=== PATIENT | male | born 1950 | race Hispanic/Latino ===

== ENCOUNTER 2020-10-28 20:34 | Inpatient (IN) | payer MEDICARE, OTHER ==
[~2020-10-28] VITALS: Ht 165.1 cm; Wt 95.3 kg
[2020-10-28] MEDS ORDERED: LACTATED RINGERS 1000ML 1,000 ML IV ONE (21:30)
[2020-10-28 22:00] LABS: EOSINOPHILS % (AUTO) 5.1 % (0.0-8.0); HEMATOCRIT 40.4 % (42-54); LYMPHOCYTES % (AUTO) 12.1 % (21.0-51.0); MEAN CORPUSCULAR HEMOGLOBIN 30.9 pg (27.0-33.0); MEAN CORPUSCULAR HGB CONC 33.9 g/dL (32.0-36.0); MONOCYTES % (AUTO) 6.9 % (3.0-13.0); NEUTROPHILS % (AUTO) 74.3 % (40.0-77.0); PLATELET COUNT (AUTO) 166 K/uL (130-400); RED BLOOD CELL COUNT(AUTO) 4.44 MIL/uL (4.50-6.20); RED CELL DISTRIBUTION WIDTH 13.2 % (11.0-15.5); WHITE BLOOD COUNT (AUTO) 7.1 K/uL (4.8-10.8)
[2020-10-28 22:07] VITALS: BP 165/86
[2020-10-28 22:10] LABS: CREATININE 1.1 mg/dL (0.5-1.5); POTASSIUM 4.6 mmol/L (3.5-5.1)
[2020-10-28 22:16] LABS: ALBUMIN 3.9 g/dL (3.5-5.0); BILIRUBIN,TOTAL 0.5 mg/dL (0.2-1.0); CRP QUANTITATIVE 10.4 mg/L (0.00-9.0); TOTAL PROTEIN, SERUM 7.3 g/dL (6.0-8.3)
[2020-10-28 22:36] LABS: APPEARANCE,URINE Clear (CLEAR); BILIRUBIN,URINE Negative (NEGATIVE); COLOR,URINE Yellow (YELLOW); GLUCOSE, URINE (UA) Negative (NEGATIVE); KETONES,URINE Negative (NEGATIVE); LEUKOCYTE ESTERASE ,URINE Negative (NEGATIVE); NITRATE,URINE Negative (NEGATIVE); OCCULT BLOOD,URINE Negative (NEGATIVE); PH,URINE 5.5 (5.0-8.0); PROTEIN,URINE Negative (NEGATIVE)
[2020-10-29] VITALS (8 sets, daily range): BP systolic 118–158; BP diastolic 59–83
[2020-10-29] MEDS ORDERED: ONDANSETRON 4MG INJ IVP PRN (04:30)
[2020-10-29] MEDS ORDERED: ACETAMINOPHEN 325 MG TAB PO PRN (04:30)
[2020-10-29] MEDS ORDERED: DEXTROSE 50%-WATER 50 ML DISP.SYRIN IV PRN (05:30)
[2020-10-29] MEDS ORDERED: GLUCAGON 1MG KIT 1 MG ML IM PRN (05:30)
[2020-10-29] MEDS: DEXTROSE 5 % AND 0.9 % NACL 1,000 ML IV SCH (05:44)
[2020-10-29] MEDS: INSULIN HUMULIN R 100 UNIT/ML 3ML SQ SCH ×3 (06:00→16:04)
[2020-10-29 08:12] LABS: BASOPHILS % (AUTO) 0.8 % (0.0-5.0); EOSINOPHILS % (AUTO) 5.1 % (0.0-8.0); HEMATOCRIT 37.7 % (42-54); LYMPHOCYTES % (AUTO) 13.5 % (21.0-51.0); MEAN CORPUSCULAR HEMOGLOBIN 30.7 pg (27.0-33.0); MEAN CORPUSCULAR HGB CONC 33.4 g/dL (32.0-36.0); MEAN CORPUSCULAR VOLUME 91.7 fL (79-99); MONOCYTES % (AUTO) 7.9 % (3.0-13.0); NEUTROPHILS % (AUTO) 72.2 % (40.0-77.0); PLATELET COUNT (AUTO) 148 K/uL (130-400); RED BLOOD CELL COUNT(AUTO) 4.11 MIL/uL (4.50-6.20); RED CELL DISTRIBUTION WIDTH 13.2 % (11.0-15.5); WHITE BLOOD COUNT (AUTO) 6.3 K/uL (4.8-10.8)
[2020-10-29 08:29] LABS: MAGNESIUM 1.8 mg/dL (1.80-2.40); POTASSIUM 3.8 mmol/L (3.5-5.1)
[2020-10-29] MEDS: ENOXAPARIN SODIUM 30 MG/0.3 ML SQ SCH (09:20)
[2020-10-29] MEDS ORDERED: OXYB10TA30 PO (12:51)
[2020-10-29] MEDS ORDERED: DOCU-116 PO (12:51)
[2020-10-29] MEDS ORDERED: ASPI-1026 PO (12:51)
[2020-10-29] MEDS ORDERED: PANT40TA54 PO (12:51)
[2020-10-29] MEDS ORDERED: MIRT15TA2 PO (12:51)
[2020-10-29] MEDS ORDERED: AMLO-257 PO (12:51)
[2020-10-29] MEDS ORDERED: LOSA50TA64 PO (12:51)
[2020-10-29] MEDS ORDERED: PRAV20TA4 PO (12:51)
[2020-10-29] MEDS ORDERED: CARB1TAB42 PO (12:51)
[2020-10-29] MEDS ORDERED: DOXA1TAB2 PO (12:51)
[2020-10-29] MEDS ORDERED: VENL-63 PO (12:51)
[2020-10-29] MEDS ORDERED: SITA25TA5 PO (12:51)
[2020-10-29] MEDS ORDERED: FOLI0.8T3 PO (12:51)
[2020-10-30] VITALS (19 sets, daily range): BP systolic 120–174; BP diastolic 46–98
[2020-10-30] MEDS: DEXTROSE 5 % AND 0.9 % NACL 1,000 ML IV SCH ×3 (01:00→21:33)
[2020-10-30 05:07] LABS: MEAN CORPUSCULAR HEMOGLOBIN 31.1 pg (27.0-33.0); MEAN CORPUSCULAR HGB CONC 33.8 g/dL (32.0-36.0); MEAN CORPUSCULAR VOLUME 91.8 fL (79-99); RED BLOOD CELL COUNT(AUTO) 4.25 MIL/uL (4.50-6.20); RED CELL DISTRIBUTION WIDTH 13.2 % (11.0-15.5); WHITE BLOOD COUNT (AUTO) 5.7 K/uL (4.8-10.8)
[2020-10-30 05:16] LABS: MAGNESIUM 1.7 mg/dL (1.80-2.40); POTASSIUM 3.8 mmol/L (3.5-5.1)
[2020-10-30 05:29] LABS: INR 1.05 (0.85-1.15); PROTHROMBIN TIME 11.4 SEC (9.6-11.6)
[2020-10-30] MEDS: INSULIN HUMULIN R 100 UNIT/ML 3ML SQ SCH ×3 (06:00→12:00)
[2020-10-30] MEDS: ENOXAPARIN SODIUM 30 MG/0.3 ML SQ SCH (09:00)
[2020-10-30] MEDS ORDERED: CEFAZOLIN SODIUM 1 GM VIAL ONE (12:11)
[2020-10-30] MEDS ORDERED: PROPOFOL 10 MG/ML 20ML VIAL IV ONE (12:22)
[2020-10-30] MEDS ORDERED: LIDOCAINE HCL 1% 20 ML VIAL ONE (12:23)
[2020-10-30] MEDS ORDERED: MAGNESIUM 2GM PREMIX 50ML 50 ML IV SCH (14:00)
[2020-10-30] MEDS ORDERED: MAGNESIUM 2GM PREMIX 50ML 50 ML IV ONE (21:38)
[2020-10-31] VITALS (27 sets, daily range): BP systolic 113–198; BP diastolic 60–95
[2020-10-31] MEDS: INSULIN HUMULIN R 100 UNIT/ML 3ML SQ SCH ×4 (06:00→18:00)
[2020-10-31] MEDS: ENOXAPARIN SODIUM 30 MG/0.3 ML SQ SCH (09:00)
[2020-10-31] MEDS ORDERED: 0.9%NACL 1000ML 1,000 ML IV ONE (09:26)
[2020-10-31] MEDS ORDERED: LIDOCAINE PF 100MG/5ML (2%) SYRINGE 5ML ONE ×2 (10:18→10:20)
[2020-10-31] MEDS ORDERED: SUCCINYLCHOLINE CHLORIDE 20 MG/ML 10 ML VIAL ONE ×2 (10:18→10:20)
[2020-10-31] MEDS ORDERED: DEXAMETHASONE SOD PHOSPHATE 10MG/ML 1ML VIAL ONE (10:18)
[2020-10-31] MEDS ORDERED: ONDANSETRON 4MG INJ ONE (10:19)
[2020-10-31] MEDS ORDERED: MIDAZOLAM HCL 1 MG/ML 2ML VIAL ONE (10:19)
[2020-10-31] MEDS ORDERED: PROPOFOL 10 MG/ML 20ML VIAL IV ONE (10:19)
[2020-10-31] MEDS ORDERED: FENTANYL CITRATE PF 50 MCG/1 ML 2ML VIAL ONE (10:20)
[2020-10-31] MEDS ORDERED: ROCURONIUM 10MG/1ML SYR 10 MG/ML ML ONE (10:20)
[2020-10-31] MEDS ORDERED: NEOSTIGMINE 5MG/5ML SYR IV ONE (10:20)
[2020-10-31] MEDS ORDERED: PHENYLEPHRINE HCL 10 MG/ML 1ML VIAL IV ONE (10:35)
[2020-10-31] MEDS ORDERED: CEFAZOLIN SODIUM 1 GM VIAL ONE ×2 (10:36→11:06)
[2020-10-31] MEDS ORDERED: BUPIVACAINE/PF 0.25% 30ML VIAL IJ ONE (11:30)
[2020-10-31] MEDS ORDERED: LIDOCAINE HCL 1% 20 ML VIAL ONE (11:30)
[2020-10-31] MEDS ORDERED: BUPIVACAINE/EPI/PF 0.25% 30ML VIAL IJ ONE (11:31)
[2020-10-31] MEDS ORDERED: HYDRALAZINE 20MG/ML VIAL ONE (11:59)
[2020-10-31] MEDS ORDERED: MEPERIDINE-PF 25 MG/ML SYG ONE (12:15)
[2020-10-31] MEDS: TRAMADOL HCL 50 MG TABLET PO SCH ×2 (16:00→22:00)
[2020-10-31] MEDS ORDERED: TRAMADOL HCL 50 MG TABLET ONE (16:08)
[2020-10-31] MEDS: HYDROMORPHONE 0.5 MG SYG (0.5MG/0.5ML) IVP PRN ×2 (16:56→22:01)
[2020-11-01] VITALS: BP 149/81
[2020-11-01] MEDS: DEXTROSE 5 % AND 0.9 % NACL 1,000 ML IV SCH (03:52)
[2020-11-01 04:00] VITALS: BP 155/78
[2020-11-01] MEDS: INSULIN HUMULIN R 100 UNIT/ML 3ML SQ SCH ×4 (06:00→17:46)
[2020-11-01] MEDS: TRAMADOL HCL 50 MG TABLET PO SCH ×3 (06:00→22:56)
[2020-11-01 08:00] VITALS: BP 128/78
[2020-11-01] MEDS: HYDROMORPHONE 0.5 MG SYG (0.5MG/0.5ML) IVP PRN (10:43)
[2020-11-01] MEDS: ENOXAPARIN SODIUM 30 MG/0.3 ML SQ SCH (10:44)
[2020-11-01 12:00] VITALS: BP 150/76
[2020-11-01 16:00] VITALS: BP 128/65
[2020-11-01 20:00] VITALS: BP 138/74
[2020-11-02] VITALS: BP 142/75
[2020-11-02] MEDS: INSULIN HUMULIN R 100 UNIT/ML 3ML SQ SCH ×4 (00:50→18:00)
[2020-11-02 04:00] VITALS: BP 123/60
[2020-11-02] MEDS: TRAMADOL HCL 50 MG TABLET PO SCH ×3 (07:43→21:35)
[2020-11-02 08:00] VITALS: BP 117/52
[2020-11-02] MEDS: DEXTROSE 5 % AND 0.9 % NACL 1,000 ML IV SCH (08:30)
[2020-11-02] MEDS: ENOXAPARIN SODIUM 30 MG/0.3 ML SQ SCH (08:35)
[2020-11-02 12:00] VITALS: BP 129/68
[2020-11-02] MEDS: HYDROMORPHONE 0.5 MG SYG (0.5MG/0.5ML) IVP PRN (12:08)
[2020-11-02] MEDS ORDERED: POLYETHYLENE GLYCOL 3350 17 GM POWD.PACK PO ONE (15:30)
[2020-11-02 16:00] VITALS: BP 124/81
[2020-11-02 20:00] VITALS: BP 128/56
[2020-11-03] VITALS (7 sets, daily range): BP systolic 118–147; BP diastolic 62–74
[2020-11-03] MEDS: INSULIN HUMULIN R 100 UNIT/ML 3ML SQ SCH ×4 (01:14→16:36)
[2020-11-03] MEDS: TRAMADOL HCL 50 MG TABLET PO SCH ×3 (06:47→21:41)
[2020-11-03] MEDS: ENOXAPARIN SODIUM 30 MG/0.3 ML SQ SCH (09:50)
[2020-11-03] MEDS: POLYETHYLENE GLYCOL 3350 17 GM POWD.PACK PO SCH (09:51)
[2020-11-04 03:51] VITALS: BP 140/76
[2020-11-04] MEDS: TRAMADOL HCL 50 MG TABLET PO SCH ×3 (06:24→22:35)
[2020-11-04] MEDS: INSULIN HUMULIN R 100 UNIT/ML 3ML SQ SCH ×4 (06:25→18:00)
[2020-11-04 08:00] VITALS: BP 133/64
[2020-11-04] MEDS: POLYETHYLENE GLYCOL 3350 17 GM POWD.PACK PO SCH (09:34)
[2020-11-04] MEDS: ENOXAPARIN SODIUM 30 MG/0.3 ML SQ SCH (09:35)
[2020-11-04] MEDS ORDERED: LACTULOSE 20 GM/30 ML UDCUP ONE (10:19)
[2020-11-04 12:00] VITALS: BP 130/70
[2020-11-04] MEDS ORDERED: DOCUSATE SODIUM 100 MG CAP PO PRN (13:00)
[2020-11-04 16:00] VITALS: BP 130/61
[2020-11-04] MEDS: LACTULOSE 20 GM/30 ML UDCUP PO SCH ×3 (16:00→22:35)
[2020-11-04 20:00] VITALS: BP 138/72
[2020-11-04] MEDS ORDERED: AMAN100C12 PO (20:25)
[2020-11-04] MEDS ORDERED: CARB-39 PO (20:25)
[2020-11-04] MEDS: DEXTROSE 5 % AND 0.9 % NACL 1,000 ML IV SCH (20:30)
[2020-11-04] MEDS: MIRTAZAPINE 15 MG PO SCH (22:30)
[2020-11-05] VITALS: BP 139/66
[2020-11-05] MEDS: INSULIN HUMULIN R 100 UNIT/ML 3ML SQ SCH ×4 (02:26→18:27)
[2020-11-05 04:00] VITALS: BP 123/69
[2020-11-05] MEDS: LACTULOSE 20 GM/30 ML UDCUP PO SCH ×2 (05:10→10:39)
[2020-11-05] MEDS: TRAMADOL HCL 50 MG TABLET PO SCH ×2 (05:10→13:18)
[2020-11-05 08:00] VITALS: BP 128/72
[2020-11-05] MEDS: Pravastatin Sodium 20 MG PO SCH (09:00)
[2020-11-05] MEDS ORDERED: CARBIDOPA/LEVODOPA ER 50-200 1 EACH TABLET.ER PO SCH (09:00)
[2020-11-05 09:29] LABS: HEMATOCRIT 41.1 % (42-54); MEAN CORPUSCULAR HEMOGLOBIN 30.6 pg (27.0-33.0); MEAN CORPUSCULAR HGB CONC 31.9 g/dL (32.0-36.0); RED BLOOD CELL COUNT(AUTO) 4.28 MIL/uL (4.50-6.20); WHITE BLOOD COUNT (AUTO) 8.6 K/uL (4.8-10.8)
[2020-11-05 09:44] LABS: BILIRUBIN,TOTAL 0.4 mg/dL (0.2-1.0); CREATININE 1.2 mg/dL (0.5-1.5); MAGNESIUM 2.3 mg/dL (1.80-2.40); POTASSIUM 4.1 mmol/L (3.5-5.1); TOTAL PROTEIN, SERUM 6.8 g/dL (6.0-8.3)
[2020-11-05] MEDS: ASPIRIN 325MG TAB PO SCH (10:29)
[2020-11-05] MEDS: PANTOPRAZOLE 40 MG TAB DR PO SCH (10:29)
[2020-11-05] MEDS: VENLAFAXINE HCL XR 37.5 MG CAP PO SCH (10:29)
[2020-11-05] MEDS: LOSARTAN 50 MG TABLET PO SCH (10:30)
[2020-11-05] MEDS: DOXAZOSIN MESYLATE 2 MG TABLET PO SCH (10:30)
[2020-11-05] MEDS: ACETAMINOPHEN WITH CODEINE 1 TAB TAB PO PRN ×2 (10:38→21:56)
[2020-11-05] MEDS: AMLODIPINE 5 MG TAB PO SCH (10:38)
[2020-11-05] MEDS: FOLIC ACID 1 MG TABLET PO SCH (10:38)
[2020-11-05] MEDS: POLYETHYLENE GLYCOL 3350 17 GM POWD.PACK PO SCH (10:39)
[2020-11-05] MEDS: ENOXAPARIN SODIUM 30 MG/0.3 ML SQ SCH (10:40)
[2020-11-05] MEDS: OXYBUTYNIN CHLORIDE 5 MG TABLET PO SCH (10:40)
[2020-11-05 12:00] VITALS: BP 100/63
[2020-11-05] MEDS: CARBIDOPA-LEVODOPA 25-100 TAB PEG SCH ×2 (15:14→21:49)
[2020-11-05] MEDS: DEXTROSE 5 % AND 0.9 % NACL 1,000 ML IV SCH (16:30)
[2020-11-05 17:05] VITALS: BP 106/55
[2020-11-05] MEDS: LACTULOSE 20 GM/30 ML UDCUP PO PRN (18:28)
[2020-11-05 20:21] VITALS: BP 110/62
[2020-11-05] MEDS: MIRTAZAPINE 15 MG PO SCH (21:09)
[2020-11-06] MEDS: LACTULOSE 20 GM/30 ML UDCUP PO PRN (00:15)
[2020-11-06 00:24] VITALS: BP 93/59
[2020-11-06 03:54] VITALS: BP 100/61
[2020-11-06] MEDS: INSULIN HUMULIN R 100 UNIT/ML 3ML SQ SCH ×4 (06:00→18:00)
[2020-11-06] MEDS: DEXTROSE 5 % AND 0.9 % NACL 1,000 ML IV SCH ×2 (06:09→12:30)
[2020-11-06] MEDS: CARBIDOPA-LEVODOPA 25-100 TAB PEG SCH ×4 (06:10→23:33)
[2020-11-06 08:00] VITALS: BP 125/69
[2020-11-06] MEDS: PANTOPRAZOLE 40 MG TAB DR PO SCH (08:11)
[2020-11-06] MEDS: ASPIRIN 325MG TAB PO SCH (08:12)
[2020-11-06] MEDS: VENLAFAXINE HCL XR 37.5 MG CAP PO SCH (08:12)
[2020-11-06] MEDS: OXYBUTYNIN CHLORIDE 5 MG TABLET PO SCH (08:12)
[2020-11-06] MEDS: FOLIC ACID 1 MG TABLET PO SCH (08:12)
[2020-11-06] MEDS: DOXAZOSIN MESYLATE 2 MG TABLET PO SCH (08:12)
[2020-11-06] MEDS: POLYETHYLENE GLYCOL 3350 17 GM POWD.PACK PO SCH (08:12)
[2020-11-06] MEDS: ENOXAPARIN SODIUM 30 MG/0.3 ML SQ SCH (08:13)
[2020-11-06] MEDS: LOSARTAN 50 MG TABLET PO SCH (08:15)
[2020-11-06] MEDS: AMLODIPINE 5 MG TAB PO SCH (08:15)
[2020-11-06] MEDS: Pravastatin Sodium 20 MG PO SCH (08:15)
[2020-11-06 12:00] VITALS: BP 94/50
[2020-11-06 16:00] VITALS: BP 117/62
[2020-11-06] MEDS: MIRTAZAPINE 15 MG PO SCH (19:41)
[2020-11-06 19:57] VITALS: BP 121/61
[2020-11-07] VITALS: BP 126/68
[2020-11-07 04:00] VITALS: BP 101/53
[2020-11-07] MEDS: CARBIDOPA-LEVODOPA 25-100 TAB PEG SCH ×4 (05:36→22:52)
[2020-11-07] MEDS: INSULIN HUMULIN R 100 UNIT/ML 3ML SQ SCH ×4 (05:45→17:40)
[2020-11-07 07:51] VITALS: BP 126/70
[2020-11-07] MEDS: DEXTROSE 5 % AND 0.9 % NACL 1,000 ML IV SCH (08:30)
[2020-11-07] MEDS: ENOXAPARIN SODIUM 30 MG/0.3 ML SQ SCH (09:00)
[2020-11-07] MEDS: ASPIRIN 325MG TAB PO SCH (09:01)
[2020-11-07] MEDS: VENLAFAXINE HCL XR 37.5 MG CAP PO SCH (09:01)
[2020-11-07] MEDS: ACETAMINOPHEN WITH CODEINE 1 TAB TAB PO PRN (09:01)
[2020-11-07] MEDS: DOXAZOSIN MESYLATE 2 MG TABLET PO SCH (09:01)
[2020-11-07] MEDS: AMLODIPINE 5 MG TAB PO SCH (09:02)
[2020-11-07] MEDS: PANTOPRAZOLE 40 MG TAB DR PO SCH (09:02)
[2020-11-07] MEDS: FOLIC ACID 1 MG TABLET PO SCH (09:02)
[2020-11-07] MEDS: POLYETHYLENE GLYCOL 3350 17 GM POWD.PACK PO SCH (09:03)
[2020-11-07] MEDS: OXYBUTYNIN CHLORIDE 5 MG TABLET PO SCH (09:03)
[2020-11-07] MEDS: LOSARTAN 50 MG TABLET PO SCH (09:03)
[2020-11-07] MEDS: Pravastatin Sodium 20 MG PO SCH (09:13)
[2020-11-07 12:00] VITALS: BP 117/54
[2020-11-07] MEDS: ROPINIROLE HCL 0.25 MG TABLET GT SCH ×2 (12:55→19:49)
[2020-11-07 16:00] VITALS: BP 112/63
[2020-11-07] MEDS: MIRTAZAPINE 15 MG PO SCH (19:52)
[2020-11-07 20:00] VITALS: BP 112/62
[2020-11-07] MEDS ORDERED: ROPINIROLE HCL 0.25 MG TABLET GT SCH (21:00)
[2020-11-08] VITALS (7 sets, daily range): BP systolic 101–146; BP diastolic 48–78
[2020-11-08] MEDS: DEXTROSE 5 % AND 0.9 % NACL 1,000 ML IV SCH (04:16)
[2020-11-08] MEDS: CARBIDOPA-LEVODOPA 25-100 TAB PEG SCH ×3 (05:35→17:31)
[2020-11-08] MEDS: INSULIN HUMULIN R 100 UNIT/ML 3ML SQ SCH ×4 (05:36→18:00)
[2020-11-08] MEDS: VENLAFAXINE HCL XR 37.5 MG CAP PO SCH (08:18)
[2020-11-08] MEDS: DOXAZOSIN MESYLATE 2 MG TABLET PO SCH (08:44)
[2020-11-08] MEDS: FOLIC ACID 1 MG TABLET PO SCH (08:44)
[2020-11-08] MEDS: ASPIRIN 325MG TAB PO SCH (08:44)
[2020-11-08] MEDS: AMLODIPINE 5 MG TAB PO SCH (08:45)
[2020-11-08] MEDS: POLYETHYLENE GLYCOL 3350 17 GM POWD.PACK PO SCH (08:45)
[2020-11-08] MEDS: LOSARTAN 50 MG TABLET PO SCH (08:45)
[2020-11-08] MEDS: OXYBUTYNIN CHLORIDE 5 MG TABLET PO SCH (08:45)
[2020-11-08] MEDS: ROPINIROLE HCL 0.25 MG TABLET GT SCH ×3 (08:45→21:40)
[2020-11-08] MEDS: ENOXAPARIN SODIUM 30 MG/0.3 ML SQ SCH (08:46)
[2020-11-08] MEDS: PANTOPRAZOLE 40 MG TAB DR PO SCH (08:47)
[2020-11-08] MEDS: Pravastatin Sodium 20 MG PO SCH (09:13)
[2020-11-08] MEDS: MIRTAZAPINE 15 MG PO SCH (21:00)
[2020-11-09] MEDS: DEXTROSE 5 % AND 0.9 % NACL 1,000 ML IV SCH ×2 (00:30→20:30)
[2020-11-09] MEDS: CARBIDOPA-LEVODOPA 25-100 TAB PEG SCH ×4 (01:17→17:33)
[2020-11-09 03:59] VITALS: BP 121/65
[2020-11-09 05:12] LABS: HEMATOCRIT 37.5 % (42-54); MEAN CORPUSCULAR HEMOGLOBIN 30.3 pg (27.0-33.0); MEAN CORPUSCULAR VOLUME 94.7 fL (79-99); RED BLOOD CELL COUNT(AUTO) 3.96 MIL/uL (4.50-6.20); RED CELL DISTRIBUTION WIDTH 13.1 % (11.0-15.5); WHITE BLOOD COUNT (AUTO) 6.6 K/uL (4.8-10.8)
[2020-11-09 05:31] LABS: MAGNESIUM 2.4 mg/dL (1.80-2.40); POTASSIUM 4.5 mmol/L (3.5-5.1)
[2020-11-09] MEDS: ROPINIROLE HCL 0.25 MG TABLET GT SCH ×3 (05:59→21:34)
[2020-11-09] MEDS: INSULIN HUMULIN R 100 UNIT/ML 3ML SQ SCH ×4 (06:00→18:00)
[2020-11-09 08:37] VITALS: BP 119/65
[2020-11-09] MEDS: POLYETHYLENE GLYCOL 3350 17 GM POWD.PACK PO SCH (09:00)
[2020-11-09] MEDS: VENLAFAXINE HCL XR 37.5 MG CAP PO SCH (09:19)
[2020-11-09] MEDS: OXYBUTYNIN CHLORIDE 5 MG TABLET PO SCH (09:21)
[2020-11-09] MEDS: ASPIRIN 325MG TAB PO SCH (09:22)
[2020-11-09] MEDS: DOXAZOSIN MESYLATE 2 MG TABLET PO SCH (09:22)
[2020-11-09] MEDS: FOLIC ACID 1 MG TABLET PO SCH (09:22)
[2020-11-09] MEDS: PANTOPRAZOLE 40 MG TAB DR PO SCH (09:22)
[2020-11-09] MEDS: AMLODIPINE 5 MG TAB PO SCH (09:22)
[2020-11-09] MEDS: LOSARTAN 50 MG TABLET PO SCH (09:23)
[2020-11-09] MEDS: Pravastatin Sodium 20 MG PO SCH (09:23)
[2020-11-09] MEDS: ENOXAPARIN SODIUM 30 MG/0.3 ML SQ SCH (09:23)
[2020-11-09 11:19] VITALS: BP 120/66
[2020-11-09 15:33] VITALS: BP 131/77
[2020-11-09 20:09] VITALS: BP 126/62
[2020-11-09] MEDS: MIRTAZAPINE 15 MG PO SCH (21:00)
[2020-11-10] VITALS (7 sets, daily range): BP systolic 107–139; BP diastolic 48–77
[2020-11-10] MEDS: CARBIDOPA-LEVODOPA 25-100 TAB PEG SCH ×5 (00:22→23:43)
[2020-11-10] MEDS: ROPINIROLE HCL 0.25 MG TABLET GT SCH ×3 (05:50→20:35)
[2020-11-10] MEDS: INSULIN HUMULIN R 100 UNIT/ML 3ML SQ SCH ×5 (05:59→23:45)
[2020-11-10] MEDS: VENLAFAXINE HCL XR 37.5 MG CAP PO SCH (08:00)
[2020-11-10] MEDS: PANTOPRAZOLE 40 MG TAB DR PO SCH (09:00)
[2020-11-10] MEDS: Pravastatin Sodium 20 MG PO SCH (09:00)
[2020-11-10] MEDS: OXYBUTYNIN CHLORIDE 5 MG TABLET PO SCH (09:30)
[2020-11-10] MEDS: DOXAZOSIN MESYLATE 2 MG TABLET PO SCH (09:31)
[2020-11-10] MEDS: AMLODIPINE 5 MG TAB PO SCH (09:31)
[2020-11-10] MEDS: LOSARTAN 50 MG TABLET PO SCH (09:31)
[2020-11-10] MEDS: FOLIC ACID 1 MG TABLET PO SCH (09:32)
[2020-11-10] MEDS: ASPIRIN 325MG TAB PO SCH (09:32)
[2020-11-10] MEDS: POLYETHYLENE GLYCOL 3350 17 GM POWD.PACK PO SCH (09:34)
[2020-11-10] MEDS: ENOXAPARIN SODIUM 30 MG/0.3 ML SQ SCH (09:35)
[2020-11-10] MEDS: DEXTROSE 5 % AND 0.9 % NACL 1,000 ML IV SCH (16:30)
[2020-11-10] MEDS: MIRTAZAPINE 15 MG PO SCH (20:39)
[2020-11-11 03:56] VITALS: BP 122/68
[2020-11-11] MEDS: ROPINIROLE HCL 0.25 MG TABLET GT SCH ×2 (05:27→13:24)
[2020-11-11] MEDS: CARBIDOPA-LEVODOPA 25-100 TAB PEG SCH ×2 (05:27→13:24)
[2020-11-11] MEDS: INSULIN HUMULIN R 100 UNIT/ML 3ML SQ SCH ×2 (06:00→13:35)
[2020-11-11 08:00] VITALS: BP 119/89
[2020-11-11] MEDS: Pravastatin Sodium 20 MG PO SCH (09:00)
[2020-11-11] MEDS: FOLIC ACID 1 MG TABLET PO SCH (10:16)
[2020-11-11] MEDS: DOXAZOSIN MESYLATE 2 MG TABLET PO SCH (10:16)
[2020-11-11] MEDS: AMLODIPINE 5 MG TAB PO SCH (10:17)
[2020-11-11] MEDS: ASPIRIN 325MG TAB PO SCH (10:17)
[2020-11-11] MEDS: LOSARTAN 50 MG TABLET PO SCH (10:17)
[2020-11-11] MEDS: OXYBUTYNIN CHLORIDE 5 MG TABLET PO SCH (10:18)
[2020-11-11] MEDS: POLYETHYLENE GLYCOL 3350 17 GM POWD.PACK PO SCH (10:22)
[2020-11-11] MEDS: PANTOPRAZOLE 40 MG TAB DR PO SCH (10:22)
[2020-11-11] MEDS: ENOXAPARIN SODIUM 30 MG/0.3 ML SQ SCH (10:23)
[2020-11-11] MEDS: VENLAFAXINE HCL XR 37.5 MG CAP PO SCH (10:33)
[2020-11-11 12:00] VITALS: BP 119/72
[2020-11-11] MEDS: DEXTROSE 5 % AND 0.9 % NACL 1,000 ML IV SCH (12:30)
== END 2020-11-11 17:30 | disposition home health service (06) | DRG 327 ==
LOC: EDH 20:34 → INTOOBSV 10-29 03:55 → OBSVTOIN 10-29 03:55 → EDHIP 10-29 03:55 → 3CH 10-29 04:29
PROVIDERS: ADMIT Internal Medicine Infectious Disease; ATTEND Internal Medicine Infectious Disease
PROC: 0DJ08ZZ Inspection of Upper Intestinal Tract, Via Natural or Artificial Opening Endoscopic (ICD-10-PCS; 2020-10-30)
PROC: 0DH60UZ Insertion of Feeding Device into Stomach, Open Approach (ICD-10-PCS; principal; 2020-11-02)
DX: R13.12 Dysphagia, oropharyngeal phase (principal); E44.0 Moderate protein-calorie malnutrition; E86.0 Dehydration; E66.01 Morbid (severe) obesity due to excess calories; I10 Essential (primary) hypertension; E11.9 Type 2 diabetes mellitus without complications; Z68.34 Body mass index [BMI] 34.0-34.9, adult; R63.3 Feeding difficulties; G20 Parkinson's disease; R53.81 Other malaise; I25.10 Atherosclerotic heart disease of native coronary artery without angina pectoris; K59.00 Constipation, unspecified; Z20.822 Contact with and (suspected) exposure to COVID-19; Z74.01 Bed confinement status; Z79.84 Long term (current) use of oral hypoglycemic drugs; Z91.14 Patient's other noncompliance with medication regimen; Z95.810 Presence of automatic (implantable) cardiac defibrillator; Z86.73 Personal history of transient ischemic attack (TIA), and cerebral infarction without residual deficits; Z83.3 Family history of diabetes mellitus; Z82.49 Family history of ischemic heart disease and other diseases of the circulatory system; I25.2 Old myocardial infarction
CPT/HCPCS: 36415; 43235; 70450; 71045; 74018; 80048; 80053; 81003; 82948; 83735; 85025; 85027; 85610; 86140; 87426; 93005; 94660; 97039; A4606; G0378; J0330; J0360; J0690; J1100; J1170; J1650; J1815; J2001; J2175; J2250; J2370; J2405; J2704; J2710; J3010; J3475; J3490; J7030; J7042; J7120